=== PATIENT | male | born 1970 | race Caucasian/White ===

== ENCOUNTER 2019-02-19 14:28 | Observation (INO) ==
[2019-02-19] MEDS ORDERED: Nitroglycerin 0.4 MG TAB.SUBL SL PRN ×2 (14:34→17:28)
[2019-02-19] MEDS ORDERED: Aspirin 81 MG TAB.CHEW PO ONE (14:34)
--- NOTE | 2019-02-19 14:34 | Emergency Department Note ---
Disposition Clinical Impression: Pneumonia Disposition: Admitted As Inpatient Condition: Fair Time of Disposition: 16:04 Chest Pain HPI - General Chief Complaint: ED Chest Pain Stated Complaint: rt sided cp Time Seen by Provider: 02/19/19 14:33 Source: patient Mode of arrival: ambulatory Limitations: no limitations Vital Signs Reviewed: Yes Nursing Notes Reviewed: Yes - History of Present Illness HPI Narrative: 48yoM who presents today with R chest pain that started this morning. He was acting fine yesterday. hx of diabetes, htn. stress test done years ago was normal. Pt complaint: chest pain - Related Data Home Medications Medication Instructions Recorded Confirmed Atorvastatin [Lipitor] 10 mg PO HS 08/29/16 02/19/19 Insulin ASPART [NovoLOG] 8 - 12 unit SQ AD 08/29/16 02/19/19 Dulaglutide [Trulicity] 0.75 mg SQ QWEEK 06/18/18 06/18/18 Insulin Glargine,Hum.rec.anlog 40 units SQ BID 06/18/18 02/19/19 [Lantus Solostar] Lisinopril-HCTZ 20-12.5 [Prinzide 1 each PO DAILY 06/18/18 02/19/19 20-12.5] Metoprolol Succinate 50 mg PO DAILY 06/18/18 02/19/19 Sildenafil Citrate [Revatio] 40 - 100 mg PO AD PRN 06/18/18 02/19/19 diazePAM [Valium] 10 mg PO TID PRN 06/18/18 02/19/19 Allergies Allergy/AdvReac Type Severity Reaction Status Date / Time metoclopramide [From Reglan] AdvReac Agitated Verified 02/19/19 14:30 Review of Systems: All other systems are negative except as noted/marked Chart generated with voice recognition software Nursing notes reviewed Old records reviewed Chest Pain PMH - Past Medical History Medical history: Reports: diabetes, hyperlipidemia, hypertension Surgical history: Reports: non-contributory Psychiatric history: Reports: anxiety, depression - Social History Smoking Status: Never smoker Alcohol use: Reports: none Drug use: Reports: marijuana Physical Exam Physical exam General: Mild distress Head: normocephalic, atraumatic Eyes: EOMI, PERRLA mouth: moist mucous membranes Neck: NO CLA, Supple Chest wall: normal rise, no crepitus, no deformity noted Lungs: Diminished lung sounds in the right upper lung field otherwise clear lung Heart: Tachycardic and regular Abd: soft, nontender, BS normal : deferred MSK: strength equal in all four extremities Ext: moves all four extremities, no obvious deformities Skin: cap refill normal, warm, dry neuro : CN2-12 grossly intact, A&Ox3 Psych: normal affect, not anxious Course Vital Signs Temperature 98.7 F 02/19/19 14:34 Pulse Rate 101 02/19/19 14:34 Respiratory Rate 16 02/19/19 14:34 Blood Pressure 167/98 02/19/19 14:34 O2 Sat by Pulse Oximetry 93 02/19/19 14:34 Temperature 99.1 F 02/19/19 19:37 Pulse Rate 85 02/19/19 19:37 Respiratory Rate 16 02/19/19 19:37 Blood Pressure 120/74 02/19/19 19:37 O2 Sat by Pulse Oximetry 96 02/19/19 19:37 Oxygen Delivery Oxygen Delivery Room Air Chest Pain - MDM Narrative Medical decision making narrative: 48-year-old male who presents today with right-sided chest pain shortness of breath cough fevers chills and not feeling well since this morning. He is been achy since this morning. He does have pneumonia on the right side. He has an elevated white count. Serum Rocephin and azithromycin IV fluids. He was tachycardic when he got here however is improving with IV fluids. I do think he needs to be watched overnight since he was so feeling poorly when he got here. He was dehydrated to some IV fluids Patient's comfortable with that plan. I spoke with Dr. Pelaez the hospitalist who agreed to accept the patient. - Medical Records Medical records reviewed: Yes I reviewed the patient's medical records. - Lab Data Lab results reviewed: Yes I reviewed the patient's lab results. Result diagrams: 02/19/19 14:59 02/19/19 14:59 Lab Results 02/19/19 02/19/19 02/19/19 Range/Units 14:37 14:59 14:59 WBC (4.3-11.1) K/mcL RBC (4.19-5.50) M/mcL Hgb (12.9-16.9) g/dL Hct (37.5-50.1) % MCV (83.0-100.0) fL MCH (28.0-33.3) pg MCHC (31.6-35.5) g/dL RDW (11.5-14.5) % Plt Count (140-400) K/mcL MPV (9.4-12.4) fL Immature Gran % (0-4) % Seg Neutrophils % % Lymphocytes % % Monocytes % % Eosinophils % % Basophils % % Neutrophils # (1.6-8.9) K/mcL Lymphocytes # (0.6-4.6) K/mcL Monocytes # (0.0-1.3) K/mcL Eosinophils # (0.0-0.6) K/mcL Basophils # (0.0-0.2) K/mcL PT 10.0 (9.4-12.1) Seconds INR 0.9 APTT 31.2 (26.0-36.0) Seconds Sodium (136-145) mEq/L Potassium (3.5-5.1) mEq/L Chloride (98-107) mEq/L Carbon Dioxide (23-29) mEq/L BUN (6-20) mg/dL Creatinine (0.70-1.30) mg/dL Est GFR ( Amer) (> 60) Est GFR (Non-Af Amer) (> 60) BUN/Creatinine Ratio (6-26) Glucose (70-105) mg/dL POC Glucose 272 H (70-99) mg/dL Calculated Osmolality (280-300) Lactic Acid (0.5-2.2) mmol/L Calcium (8.6-10.3) mg/dL Troponin I (< 0.04) ng/mL B-Natriuretic Peptide 13 (Less than 100) pg/mL 02/19/19 02/19/19 02/19/19 Range/Units 14:59 14:59 15:38 WBC 13.2 H (4.3-11.1) K/mcL RBC 4.85 (4.19-5.50) M/mcL Hgb 15.2 (12.9-16.9) g/dL Hct 43.6 (37.5-50.1) % MCV 89.9 (83.0-100.0) fL MCH 31.3 (28.0-33.3) pg MCHC 34.9 (31.6-35.5) g/dL RDW 12.2 (11.5-14.5) % Plt Count 148 (140-400) K/mcL MPV 11.1 (9.4-12.4) fL Immature Gran % 0.4 (0-4) % Seg Neutrophils % 79.7 % Lymphocytes % 10.4 % Monocytes % 7.5 % Eosinophils % 1.6 % Basophils % 0.4 % Neutrophils # 10.5 H (1.6-8.9) K/mcL Lymphocytes # 1.4 (0.6-4.6) K/mcL Monocytes # 1.0 (0.0-1.3) K/mcL Eosinophils # 0.2 (0.0-0.6) K/mcL Basophils # 0.1 (0.0-0.2) K/mcL PT (9.4-12.1) Seconds INR APTT (26.0-36.0) Seconds Sodium 138 (136-145) mEq/L Potassium 4.2 (3.5-5.1) mEq/L Chloride 105 (98-107) mEq/L Carbon Dioxide 26 (23-29) mEq/L BUN 50 H (6-20) mg/dL Creatinine 1.65 H (0.70-1.30) mg/dL Est GFR ( Amer) 54 L (> 60) Est GFR (Non-Af Amer) 44 L (> 60) BUN/Creatinine Ratio 30 H (6-26) Glucose 279 H (70-105) mg/dL POC Glucose (70-99) mg/dL Calculated Osmolality 309 H (280-300) Lactic Acid 1.1 (0.5-2.2) mmol/L Calcium 8.9 (8.6-10.3) mg/dL Troponin I < 0.03 (< 0.04) ng/mL B-Natriuretic Peptide (Less than 100) pg/mL - Radiology Data Radiology results reviewed: Yes I reviewed the patient's radiology results. EXAMINATION: ONE XRAY VIEW OF THE CHEST 02/19/2019 2:47 pm COMPARISON: None. HISTORY: ORDERING SYSTEM PROVIDED HISTORY: chest pain FINDINGS: Heart size and pulmonary vessels within normal limits. Airspace disease in the medial inferior right upper lobe. Left lung clear. Costophrenic angles sharp XR/XR chest 1V portable IMPRESSION: Right upper lobe airspace disease compatible with pneumonia D/ / Camilo Puentes MD / Camilo Puentes MD Interpreting Provider: Camilo Puentes MD - EKG Data EKG attestation: Yes I reviewed and interpreted this EKG. EKG results narrative: EKG interpreted by myself as sinus tachycardia at [address] elevation Heart Score - Score History: Slightly Suspicious EKG: Normal Age: 45-65 Risk Factors: No risk factors known Troponin: Less than normal limit HEART Score Total: 1
[2019-02-19] MEDS ORDERED: Nitroglycerin 0.4 MG TAB.SUBL SL ONE (14:37)
[2019-02-19] MEDS ORDERED: Ondansetron ODT 4 MG TAB.RAPDIS SL ONE (14:43)
[2019-02-19 15:11] LABS: Basophils # 0.1 K/mcL (0.0-0.2); Basophils % 0.4 %; Eosinophils # 0.2 K/mcL (0.0-0.6); Eosinophils % 1.6 %; Hematocrit 43.6 % (37.5-50.1); Hemoglobin 15.2 g/dL (12.9-16.9); Immature Granulocytes % 0.4 % (0-4); Lymphocytes # 1.4 K/mcL (0.6-4.6); Lymphocytes % 10.4 %; Mean Corpuscular HGB Conc 34.9 g/dL (31.6-35.5); Mean Corpuscular Hemoglobin 31.3 pg (28.0-33.3); Mean Corpuscular Volume 89.9 fL (83.0-100.0); Mean Platelet Volume 11.1 fL (9.4-12.4); Monocytes % 7.5 %; Neutrophils # 10.5 K/mcL (1.6-8.9); Platelet Count 148 K/mcL (140-400); Red Blood Count 4.85 M/mcL (4.19-5.50); Red Cell Distribution Width 12.2 % (11.5-14.5); Segmented Neutrophils % 79.7 %
[2019-02-19] MEDS ORDERED: *HR* Labetalol 20 MG/4 ML SYRINGE IVP ONE (15:11)
[2019-02-19 15:22] LABS: INR 0.9
[2019-02-19 15:25] LABS: Activated Partial Thrombo Time 31.2 Seconds (26.0-36.0)
[2019-02-19] MEDS ORDERED: cefTRIAXone 1,000 MG in Water for inj. (sterile) 20 ML 10 ML IVP ONE (15:27)
[2019-02-19] MEDS ORDERED: Azithromycin 500 MG in D5% in Water 250 ML IVPB ONE (15:27)
[2019-02-19 15:35] LABS: Troponin I < 0.03 ng/mL (< 0.04)
[2019-02-19] MEDS ORDERED: D5% in Water 250 ML ONE ×2 (15:43→17:28)
[2019-02-19 15:49] LABS: BUN/Creatinine Ratio 30 (6-26); Blood Urea Nitrogen 50 mg/dL (6-20); Calcium 8.9 mg/dL (8.6-10.3); Carbon Dioxide 26 mEq/L (23-29); Chloride 105 mEq/L (98-107); Glucose 279 mg/dL (70-105); Osmolality,Calculated 309 (280-300); Potassium 4.2 mEq/L (3.5-5.1); Sodium 138 mEq/L (136-145); eGFR For Non-African Americans 44 (> 60)
[2019-02-19] MEDS ORDERED: 0.9 % Sodium Chloride 1,000 ML IVC ONE (17:28)
[2019-02-19] MEDS ORDERED: diazePAM 5 MG TABLET PO PRN (17:28)
[2019-02-19] MEDS ORDERED: *HR* HYDROcodone/Acet 5/325 mg TABLET PO PRN (17:28)
[2019-02-19] MEDS ORDERED: Mag Hydrox/Al Hydrox/Simeth 30 ML UDC PO PRN (17:28)
[2019-02-19] MEDS ORDERED: 0.9 % Sodium Chloride 1,000 ML IVC SCH (17:28)
[2019-02-19] MEDS ORDERED: INSULIN ASPART 8 UNIT SQ SCH (17:28)
[2019-02-19] MEDS ORDERED: Naloxone 0.4 MG/ML INJ IVP PRN (17:28)
[2019-02-19] MEDS ORDERED: Ondansetron 4 MG/2 ML VIAL IVP PRN (17:28)
[2019-02-19] MEDS ORDERED: MOM Conc 10 ML UD.LIQ PO PRN (17:28)
[2019-02-19] MEDS ORDERED: Acetaminophen 325 MG TABLET PO PRN (17:28)
[2019-02-19] MEDS: 0.9 % Sodium Chloride 1,000 ML IVC SCH (18:23)
[2019-02-19] MEDS ORDERED: Insulin LISPRO 300 UNITS/3 ML VIAL SQ SCH (21:00)
[2019-02-19] MEDS: Insulin DETEMIR 100 UNIT/ML X5UNITS SQ SCH (21:43)
[2019-02-20] MEDS: 0.9 % Sodium Chloride 1,000 ML IVC SCH (02:08)
[2019-02-20 06:06] LABS: Bilirubin,Urine Negative (Negative); Blood,Urine Small (Negative); Clarity,Urine Clear (Clear); Color,Urine Yellow (Yellow); Glucose,Urine (UA) Normal (Normal); Ketones,Urine Negative (Negative); Leukocyte Esterase,Urine Negative (Negative); Nitrite,Urine Negative (Negative); PH,Urine 5.5 pH Units (5.0-8.0); Protein,Urine 100 mg/dL (Neg-Trace); Urobilinogen,Urine Normal (Normal)
[2019-02-20 06:18] LABS: Amphetamine Screen,Urine Negative ng/mL (Cutoff=1000); Barbiturate Screen,Urine Negative ng/mL (Cutoff=200); Benzodiazepines Screen,Urine Positive ng/mL (Cutoff=200); Cannabinoid Screen,Urine Positive ng/mL (Cutoff = 50); Cocaine Screen,Urine Negative ng/mL (Cutoff= 300); Opiate Screen,Urine Positive ng/mL (Cutoff=300); Phencyclidine Screen,Urine Negative ng/mL (Cutoff=25)
[2019-02-20 07:10] LABS: Basophils % 0.3 %; Eosinophils # 0.1 K/mcL (0.0-0.6); Hematocrit 38.3 % (37.5-50.1); Hemoglobin 13.2 g/dL (12.9-16.9); Lymphocytes # 2.3 K/mcL (0.6-4.6); Lymphocytes % 16.9 %; Mean Corpuscular HGB Conc 34.5 g/dL (31.6-35.5); Mean Corpuscular Hemoglobin 31.4 pg (28.0-33.3); Mean Platelet Volume 11.2 fL (9.4-12.4); Monocytes # 1.3 K/mcL (0.0-1.3); Monocytes % 9.6 %; Neutrophils # 9.6 K/mcL (1.6-8.9); Platelet Count 120 K/mcL (140-400); Red Blood Count 4.21 M/mcL (4.19-5.50); Red Cell Distribution Width 12.8 % (11.5-14.5); Segmented Neutrophils % 71.2 %
[2019-02-20 07:31] LABS: BUN/Creatinine Ratio 25 (6-26); Blood Urea Nitrogen 36 mg/dL (6-20); Carbon Dioxide 29 mEq/L (23-29); Chloride 107 mEq/L (98-107); Glucose 82 mg/dL (70-105); Osmolality,Calculated 295 (280-300); Potassium 3.7 mEq/L (3.5-5.1); Sodium 139 mEq/L (136-145); eGFR For Non-African Americans 51 (> 60)
[2019-02-20] MEDS ORDERED: hydroCHLOROthiazide 25 MG TABLET PO SCH (09:00)
[2019-02-20] MEDS ORDERED: Lisinopril 20 MG TABLET PO SCH (09:00)
[2019-02-20] MEDS ORDERED: Metoprolol XL (24 HR) Succ 50 MG TAB.ER.24H PO SCH (09:00)
[2019-02-20] MEDS: Insulin LISPRO 300 UNITS/3 ML VIAL SQ SCH ×2 (09:26→12:04)
[2019-02-20] MEDS: Insulin DETEMIR 100 UNIT/ML X5UNITS SQ SCH (09:26)
[2019-02-20 10:20] VITALS: BP 128/80
--- NOTE | 2019-02-20 15:13 | Internal Med History&Physical ---
Date of Encounter: 02/20/19 Time of Encounter: 14:40 Assessment and Plan (1) Pneumonia Current visit: Yes Status: Acute He was given Rocephin and Zithromax in emergency room. He will continue with Ceftin and Zithromax with lactobacillus at discharge. Room air oximetry will be checked on 6 minute walk prior to discharge. Qualifiers: Pneumonia type: due to unspecified organism Laterality: right Lung location: upper lobe of lung Qualified Code(s): J18.1 - Lobar pneumonia, unspecified organism (2) CKD (chronic kidney disease) stage 3, GFR 30-59 ml/min Current visit: Yes Status: Chronic His PCP can monitor renal indices. (3) Hypertension Current visit: Yes Status: Chronic Continue lisinopril/HCTZ and Toprol-XL. Qualifiers: Hypertension type: essential hypertension Qualified Code(s): I10 - Essential (primary) hypertension Internal Medicine - H&P: HPI Chief complaint: Fevers, chills, cough Admitted From: Emergency Dept Plans for Post Hospital Care: Home History of present illness: Mr. Smith is a 48 year old male who came to emergency room complaining of fevers and chills with minimally productive cough upon awakening the morning of admission. He reports chest discomfort in his right upper anterior chest. He came to emergency room where evaluation showed right upper lobe infiltrate. He was given IV antibiotics and admitted to [facility] floor for ongoing care needs. He states he feels significantly improved at the present time and wishes to be discharged home. Respiratory history is significant for having smoked from age [age] up to 3 packs per day. His known chronic lung disease and does not use home oxygen. He denies being tested for sleep apnea. He does not recall having pneumonia previously. Past Med Surg Social Fam HX - Past Medical History Medical history: diabetes, hyperlipidemia, hypertension Additional medical history: obesity Psychiatric history: anxiety, depression - Past Surgical History Surgical History: non-contributory Additional surgical history: right knee surgery,left foot ulcer,bilateral foot ulcers,left shoulder an/sup labral repair,left foot surgery - Social History Smoking Status: Never smoker Smokeless Tobacco Status: Yes Alcohol use: none Drug use: marijuana - Family History Mother Living Status: Hx Family Cardiac Disorders: Yes Hx Family Respiratory Disorders: No Hx Family Cancer: Yes Hx Family GI Disorders: No Hx Family Endocrine Disorder: Yes Hx Family Neuromuscular Disorders: No Hx Family Neurologic Disorders: No Hx Family HEENT Disorders: No Hx Family Autoimmune Disorders: No Hx Family Reproductive Disorders: No Hx Family Psychosocial Disorders: No Hx Family Medical Disorders: No Internal Medicine - H&P: Meds Atorvastatin [Lipitor] 10 mg PO HS 08/29/16 [History] Insulin ASPART [NovoLOG] 8 - 12 unit SQ AD 08/29/16 [History] Dulaglutide [Trulicity] 0.75 mg SQ QWEEK 06/18/18 [History] Insulin Glargine,Hum.rec.anlog [Lantus Solostar] 40 units SQ BID 06/18/18 [History] Lisinopril-HCTZ 20-12.5 [Prinzide 20-12.5] 1 each PO DAILY 06/18/18 [History] Metoprolol Succinate 50 mg PO DAILY 06/18/18 [History] Sildenafil Citrate [Revatio] 40 - 100 mg PO AD PRN 06/18/18 [History] diazePAM [Valium] 10 mg PO TID PRN 06/18/18 [History] Allergy/AdvReac Type Severity Reaction Status Date / Time metoclopramide [From Reglan] AdvReac Agitated Verified 02/19/19 14:30 All Systems PM: A 10-system review of systems was performed and is negative for pertinent findings except as documented above in the HPI. Review of systems: Gen.: His weight has minimally changed from 97.522 kg in December 2015 to present weight of 99.79 kg. Cardiovascular: He has history of hypertension but denies DC heart failure angina DVT or pulmonary embolus Respiratory: As per history of present illness GI: He has had occasional right lower quadrant pain unrelated to activity or food ingestion. He denies known disorders of his liver gallbladder or exocrine pancreas. : He has chronic kidney disease stage III. He denies other kidney bladder prostate disorders Neurologic: He denies large distribution strokes or seizures. Endocrine: He was diagnosed with DM 2 approximately 2010. He has hyperlipidemia but denies known thyroid disease. Hematology/oncology: He denies blood disorders cancers or anemia Psychiatric: He has anxiety but denies depression or other mental health diagnosis. [place] skeletal: He has had 2 surgeries on each foot in the past. He has had left shoulder injury repair and right knee ACL repair. He denies gout. - Constitutional Vitals: Temp Pulse Resp BP Pulse Ox 98.0 F 70 18 128/80 97 02/20/19 10:17 02/20/19 10:17 02/20/19 10:17 02/20/19 10:17 02/20/19 10:17 Exam: Enteral: He is a well-developed well-nourished male resting comfortably in bed who appears in no acute distress HEENT: Head is atraumatic and normocephalic. Eyes: EOMI. There is no scleral icterus. Mouth: Mucosa is moist. Neck: Supple and nontender. There is no thyromegaly or adenopathy noted. Heart: Regular without murmurs gallops or ectopics Lungs: No wheezes or crackles are heard. Abdomen: Soft and nontender. No masses or guarding are noted. Extremities: There is no cyanosis edema or clubbing noted. Dorsalis pedis and posterior tibial pulses are trace to 1+ palpable bilaterally. Neurologic: Mental status: He is talkative and a good historian. Cranial nerves: Smile is symmetric. Forehead wrinkles bilaterally. Tongue protrudes midline. EOMI. Motor: There is no pronator drift. Cerebellar: Finger to nose is intact bilaterally. Skin: Warm and dry Internal Med - H&P Results - Labs CBC & Chem 7: 02/20/19 06:35 02/20/19 06:35 Labs: Short CBC 02/19/19 02/20/19 Range/Units 14:59 06:35 WBC 13.2 H 13.5 H (4.3-11.1) K/mcL Hgb 15.2 13.2 D (12.9-16.9) g/dL Hct 43.6 38.3 (37.5-50.1) % Plt Count 148 120 L (140-400) K/mcL Neutrophils # 10.5 H 9.6 H (1.6-8.9) K/mcL BMP 02/19/19 02/20/19 14:59 06:35 Sodium 138 139 Potassium 4.2 3.7 Chloride 105 107 Carbon Dioxide 26 29 BUN 50 H 36 H Creatinine 1.65 H 1.46 H Glucose 279 H 82 Calcium 8.9 8.0 L Cardiac Enzymes 02/19/19 Range/Units 14:59 Troponin I < 0.03 (< 0.04) ng/mL Urine 02/20/19 Range/Units 04:59 Urine Color Yellow (Yellow) Urine Clarity Clear (Clear) Urine pH 5.5 (5.0-8.0) pH Units Ur Specific [place] 1.020 (1.010-1.025) Urine Protein 100 H (Neg-Trace) mg/dL Urine Glucose (UA) Normal (Normal) mg/dL - Impressions ITS Impressions Chest X-Ray 02/19/19 14:34 IMPRESSION: Right upper lobe airspace disease compatible with pneumonia D/ / Camilo Puentes MD / Camilo Puentes MD Interpreting Provider: Camilo Puentes MD
--- NOTE | 2019-02-20 15:28 | Discharge Summary ---
Orders not resulted at time of discharge: Pending orders 02/19/19 15:41 Culture,Blood [BC] Stat Date of Encounter: 02/20/19 Time of Encounter: 14:40 - Discharge Diagnosis (1) Pneumonia Priority: Primary Status: Acute Qualifiers: Pneumonia type: due to unspecified organism Laterality: right Lung location: upper lobe of lung Qualified Code(s): J18.1 - Lobar pneumonia, unspecified organism (2) CKD (chronic kidney disease) stage 3, GFR 30-59 ml/min Priority: Secondary Status: Chronic (3) Hypertension Priority: Secondary Status: Chronic Qualifiers: Hypertension type: essential hypertension Qualified Code(s): I10 - Essential (primary) hypertension Hospital course: Mr. Smith is a 48 year old male who came to emergency room complaining of fevers and chills with minimally productive cough upon awakening the morning of admission. He reports chest discomfort in his right upper anterior chest. He came to emergency room where evaluation showed right upper lobe infiltrate. He was given IV antibiotics and admitted to [facility] floor for ongoing care needs. Initial orders were written by the emergency room physician. I saw him on February 20 and performed a history physical and discharge. He was given IV Rocephin and Zithromax in emergency room. When I saw him he stated his chest pain had completely resolved and he had no significant coughing. He remained afebrile during his hospital stay. He stated he wished to be discharged home which I felt was reasonable. He will continue with oral antibiotic and probiotic for 4 additional days at discharge. He will follow with his PCP Dr. Troncoso within 1 week. Room air oximetry will be checked on 6 minute walk prior to discharge. - Time Spent with Patient Total time spent providing and/or coordinating discharge services: - Discharge Medications Prescriptions: New Cefuroxime PO [Ceftin] 500 mg PO Q12HR #8 tablet Lactobacillus [Culturelle] 1 each PO BID #8 cap.sprink Azithromycin [Zithromax] 250 mg PO DAILY #4 tablet Continued Insulin ASPART [NovoLOG] 8 - 12 unit SQ AD Atorvastatin [Lipitor] 10 mg PO HS Metoprolol Succinate 50 mg PO DAILY Sildenafil Citrate [Revatio] 40 - 100 mg PO AD PRN PRN Reason: Erectile Dysfunction diazePAM [Valium] 10 mg PO TID PRN PRN Reason: Anxiety Dulaglutide [Trulicity] 0.75 mg SQ QWEEK Insulin Glargine,Hum.rec.anlog [Lantus Solostar] 40 units SQ BID Lisinopril-HCTZ 20-12.5 [Prinzide 20-12.5] 1 each PO DAILY Home Medications: Atorvastatin [Lipitor] 10 mg PO HS 08/29/16 [History] Insulin ASPART [NovoLOG] 8 - 12 unit SQ AD 08/29/16 [History] Dulaglutide [Trulicity] 0.75 mg SQ QWEEK 06/18/18 [History] Insulin Glargine,Hum.rec.anlog [Lantus Solostar] 40 units SQ BID 06/18/18 [History] Lisinopril-HCTZ 20-12.5 [Prinzide 20-12.5] 1 each PO DAILY 06/18/18 [History] Metoprolol Succinate 50 mg PO DAILY 06/18/18 [History] Sildenafil Citrate [Revatio] 40 - 100 mg PO AD PRN 06/18/18 [History] diazePAM [Valium] 10 mg PO TID PRN 06/18/18 [History] Azithromycin [Zithromax] 250 mg PO DAILY #4 tablet 02/20/19 [Rx] Cefuroxime PO [Ceftin] 500 mg PO Q12HR #8 tablet 02/20/19 [Rx] Lactobacillus [Culturelle] 1 each PO BID #8 cap.sprink 02/20/19 [Rx] Allergies/Adverse Reactions: Allergy/AdvReac Type Severity Reaction Status Date / Time metoclopramide [From Reglan] AdvReac Agitated Verified 02/19/19 14:30 Date of admission: 02/19/19 16:56 Primary care physician: Jefferson Troncoso MD - Constitutional Vitals: Temp Pulse Resp BP Pulse Ox 98.0 F 70 18 128/80 97 02/20/19 10:17 02/20/19 10:17 02/20/19 10:17 02/20/19 10:17 02/20/19 15:12 - Patient Status Disposition: Home, Self-Care Condition: Fair - Discharge Instructions Follow Up With: Jefferson Troncoso MD [Primary Care Provider] - 1 week - Diet and Activity Activity: resume usual activities as tolerated Diet: diabetic diet
[2019-02-20] MEDS ORDERED: Azithromycin 500 MG in D5% in Water 250 ML IVPB SCH (16:00)
[2019-02-20] MEDS ORDERED: cefTRIAXone 2,000 MG in Water for inj. (sterile) 20 ML 20 ML IVP SCH (16:00)
--- NOTE | 2019-02-21 13:51 | Electrocardiograph Report ---
[place] [id number] Test Date: 2019-02-19 Pat Name: Elder Smith Department: EDP-15 Room: [facility] Gender: M [employer]: : 1970 Requested By: Oumou Cuevas Order Number: [id number] Reading MD: Nabil Whitmore Measurements Intervals [place] Rate: 101 P: 40 OR: 133 QRS: 100 QRSD: 94 T: 24 QT: 337 QTc: 437 Interpretive Statements Sinus tachycardia Right axis deviation Electronically Signed On 02-21-2019 13:49:21 EDT by Nabil Whitmore
== END 2019-02-20 16:44 | disposition home or self-care (01) ==
LOC: INPPIK 14:28 → EMEROOPIK 14:28 → INPPIK 17:19
PROVIDERS: ADMIT Internal Medicine; ATTEND Internal Medicine